=== PATIENT | male | born 1995 | race Caucasian/White ===

== ENCOUNTER 2018-03-09 02:27 | Inpatient (IN) ==
--- OUTSIDE RECORDS SUMMARY | 2018-03-09 02:40 | External Medical Summary | Referral Summary ---
:1995 Author Organization [facility] [place], [facility] Address [address] [place] [address] [place] [id number] Care Team Providers Name Role Phone No PCP, States Primary Care Physician Encounter VC Date(s): 07/06/16 - 07/06/16 [facility] [place], [address] [place] [phone] [place] Discharge Diagnosis: Heat exposure Discharge Disposition: 01-Home or Self Care Attending Physician: Lauri Carrasco PA-C Admitting Physician: Lauri Carrasco PA-C Vital Signs Most recent to oldest [Reference Range]: 1 Temperature Tympanic [36.6-38.1 degC] 36.9 degC (07/06/16 4:36 PM) Peripheral Pulse Rate [60-100 bpm] 59 bpm *LOW* (07/06/16 4:36 PM) Blood Pressure [90-140/60-90 mmHg] 120/72 mmHg (07/06/16 4:36 PM) SpO2 98 % (07/06/16 4:36 PM) Problem List No data available for this section Allergies, Adverse Reactions, Alerts No Known Allergies Medications No Known Medications Results No data available for this section Immunizations No data available for this section Procedures Procedure Date Related Diagnosis Body Site Appendectomy Social History Social History Type Response Smoking Status Never smoker Assessment and Plan Extracted from: Title: tired, dizzy Author: Lauri Carrasco PA-C Date: 07/06/16 Assessment/Plan Heat exposure Recommended adequate hydration, taking water with him, wearing a hat to provide shade,loosefitting clothing-light colored. DAwork note was providediagnosis and treatment discussed. Patient advised to follow up with PCP in 2-3 days. Patient stable upon discharge, alert and orientated with no apparent distress, and indicated understanding of discharge instructions.
--- OUTSIDE RECORDS SUMMARY | 2018-03-09 02:40 | External Medical Summary | Referral Summary ---
:1995 Author Organization [facility] [place] [facility] Address [address] [place] [address] [place] [phone] Care Team Providers Name Role Phone No PCP, States Primary Care Physician Encounter VC Date(s): 08/15/16 - 08/15/16 [facility] [place] [address] [place] [phone] [place] Discharge Disposition: 01-Home or Self Care Attending Physician: Aaron Guthrie APRN Admitting Physician: Aaron Guthrie APRN Vital Signs Most recent to oldest [Reference Range]: 1 Temperature Tympanic [36.6-38.1 degC] 36.9 degC (08/15/16 8:33 AM) Peripheral Pulse Rate [60-100 bpm] 67 bpm (08/15/16 8:33 AM) Respiratory Rate [14-20 br/min] 17 br/min (08/15/16 8:33 AM) Blood Pressure [90-140/60-90 mmHg] 118/70 mmHg (08/15/16 8:33 AM) SpO2 98 % (08/15/16 8:33 AM) Problem List No data available for this section Allergies, Adverse Reactions, Alerts No Known Allergies Medications No Known Medications Results No data available for this section Immunizations No data available for this section Procedures Procedure Date Related Diagnosis Body Site Appendectomy Social History Social History Type Response Smoking Status Never smoker Assessment and Plan No data available for this section
--- OUTSIDE RECORDS SUMMARY | 2018-03-09 02:40 | External Medical Summary | Continuity of Care Document ---
:1995 Author Organization Via [facility] in [place] Allergies Active Description Code Type Severity Reaction Onset Reported/ Identified Relationship Clinical to Patient Status Yes No Allergy Drug N/A N/A 11/23/2013 Information Aller gy Yes No Known Drug N/A N/A 11/23/2013 Drug Aller Allergies gy Yes No Known NKMA N/A N/A 07/06/2016 Allergies Medications There is no data. 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 11/23/2013 Nelson RODRIGUEZ, Final 338.29 CHRONIC PAIN NEC [facility] 11/23/2013 Nelson RODRIGUEZ, Final 339.20 POST-TRAUM HEADACHE Bhavin W NOS 11/23/2013 Nelson RODRIGUEZ, Final 719.47 JOINT PAIN-ANKLE Bhavin W 11/23/2013 Nelson RODRIGUEZ, Final 784.0 HEADACHE Bhavin W 11/23/2013 Nelson RODRIGUEZ, 959.01 HEAD INJURY NOS [facility] 11/23/2013 Nelson RODRIGUEZ, External 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 11/23/2013 Nelson RODRIGUEZ, External E849.[address] ON [facility] STREET/[address] 07/06/2016 Lauri Carrasco Final T67.9XXA Effect of heat and E light, unspecified, initial encounter 08/18/2016 Jerri, Final S62.309A Unspecified fracture Aaron A of unspecified metacarpal bone, initial encounter for closed fracture Procedures Code Description [place] [address] Office or 07/06/2016 other outpatient visit for the evaluation and management of a new patient, which requires these 3 paredes components: A detailed history; A detailed examination; Medical decision making of jane c [id number] Radiologic 08/15/2016 examination, hand; minimum of 3 views.. [id number] Office or 08/15/2016 other outpatient visit for the evaluation and management of an established patient, which requires at least 2 of these 3 paredes components: A detailed history; A detailed examination; Medical d Results There is no data. Encounters ACCT No. Visit Discharge Status Pt. Type Provider Facility Loc./Unit Complaint Date/Time [id number] 11/23/2013 11/24/2013 DIS Outpatient Nelson Via N 3 18:37:00 11:15:00 Bhavin RODRIGUEZ [facility] [id number] 08/15/2016 08/15/2016 DIS Outpatient Guthrie, Via [facility] right hand 43 08:24:00 23:59:00 Aaron [facility] [id number] 07/06/2016 07/06/2016 DIS Outpatient Komarek, Via [facility] IC DIZZY AND 37 16:24:00 23:59:00 Lauri [facility]
[2018-03-09] MEDS ORDERED: SALINE FLUSH 10ml SYRINGE IVF PRN (02:46)
[2018-03-09] MEDS ORDERED: NS 1,000 ML IV ONE (02:47)
--- NOTE | 2018-03-09 02:53 | Emergency Department Report ---
General Adult HPI - General Chief complaint: Psychiatric Symptoms <SamuelDaniel Barnett 03/09/18 02:53> Stated complaint: eval <BakerDaniel 03/09/18 02:53> Time Seen by Provider: 03/09/18 02:31 <Elpidio Bakerwendy Barnett 03/09/18 02:53> Source: patient, police <Elpidio Bakerwendy Barnett 03/09/18 02:53> Mode of arrival: ambulatory <BakerDaniel 03/09/18 02:53> Limitations: no limitations <SamuelDaniel Barnett 03/09/18 02:53> - History of Present Illness HPI narrative: 22-year-old male presents to the emergency department with the chief complaint of suicidal thoughts with suicidal gesture. He states that at approximately 1:30 this morning he took approximately 40 tablets of extra strength Tylenol and 8-10 tablets of Xanax of unknown strength. A purchased the Xanax from a person off the street and does not know the strength. He denies any other form of self injury or self-harm. He denies homicidal ideation or plan. He denies any current pain or discomfort. No other complaints or associated symptoms. He was at home when his symptoms began. Symptoms have been persistent in nature since onset. Patient arrived back in town yesterday from [place] where he was living with his girlfriend after the girlfriend broke up with him. Patient states that the girlfriend breaking up with him was the catalyst for his actions. No history of suicide attempts in the past. <Daniel Baker 03/09/18 02:55> - Related Data Home Medications Medication Instructions Recorded Confirmed No known Home medications [No home 03/09/18 03/09/18 meds] <Daniel Baker 03/09/18 02:53> Allergies Allergy/AdvReac Type Severity Reaction Status Date / Time morphine AdvReac Mild NAUSEA/ Verified 03/09/18 03:53 VOMITING <Daniel Baker 03/09/18 02:53> Review of Systems Constitutional: Denies: fever, chills <Daniel Baker 03/09/18 02:55> Eyes: Denies: eye pain, vision change <Daniel Baker 03/09/18 02:55> ENT: Denies: ear pain, throat pain <Daniel Baker 03/09/18 02:55> Cardiovascular: Denies: chest pain, palpitations <Daniel Baker 03/09/18 02: 55> Respiratory: Denies: cough, dyspnea <Daniel Baker 03/09/18 02:55> Gastrointestinal: Denies: abdominal pain, nausea, vomiting, diarrhea <Daniel Baker 03/09/18 02:55> Genitourinary: Denies: urgency, dysuria <Daniel Baker 03/09/18 02:55> Musculoskeletal: Denies: back pain, arthralgia <Daniel Baker 03/09/18 02:55 > Integumentary: Denies: erythema, rash <Daniel Baker 03/09/18 02:55> Neurological: Denies: headache, numbness, paresthesias <Daniel Baker 02:55> Psychiatric: Reports: depression, suicidal thoughts. Denies: anxiety, homicidal thoughts, auditory hallucinations, visual hallucinations <Daniel Baker 03/09/18 04:20> Endocrine: Denies: polydipsia, polyuria <Daniel Baker 03/09/18 02:55> Hematological/Lymphatic: Denies: easy bruising, lymphadenopathy <Daniel Baker 03/09/18 02:55> Allergic/Immunologic: Denies: facial swelling, urticaria <Daniel Baker 02:55> [facility] Patient Stated Medical History Depression Yes: hx as a child ADHD <Daniel Baker 03/09/18 02:55> Surgical History: Denied by patient. <Daniel Baker 03/09/18 02:55> Family History: Reviewed and Noncontributory. <Daniel Baker 03/09/18 02:55> - Social History Smoking status: Never smoker <Daniel Baker 03/09/18 02:55> Substance use type: does not use <Daniel Baker 03/09/18 02:55> Alcohol intake frequency: a few times a month <Daniel Baker 03/09/18 02:55> Physical Exam - Limitations Limitations: no limitations <Daniel Baker 03/09/18 02:55> - General General appearance: alert, in no apparent distress <Daniel Baker 03/09/18 02:55> - Normal Exams: Head:: Normocephalic without trauma <Daniel Baker 03/09/18 02:55> Eyes:: Pupils are PERRLA w/ EOMI, No scleral icterus, irritation, or foreign bodies noted <Daniel Baker 03/09/18 02:55> ENMT:: No facial trauma, nasal exudates, pharyngeal erythema, or exudates are noted <Daniel Baker 03/09/18 02:55> Dental: No fractured, loose, or missing teeth noted <Daniel Baker 03/09/18 02:55> Neck:: Full range of motion, without adenopathy, JVD, bruits or thyromegaly < Daniel Baker 03/09/18 02:55> Chest/Respirations:: Clear all rios, with good airflow, and symmetry bilaterally <Daniel Baker 03/09/18 02:55> Cardiovascular:: Regular rate and rhythm, without murmur or gallop, Pulses 2+ all extremities, capillary refill, <2 seconds all extremities <Daniel Baker 03/09/18 02:55> Abdomen:: Bowel sounds positive, soft, non-tender, non-distended, no hepatosplenomegaly, masses or bruits noted <Daniel Baker 03/09/18 02:55> Lymphatic:: No lymphadenopathy, or lymphedema noted <Daniel Baker 03/09/18 02:55> Musculoskeletal:: No tenderness, or deformity noted, good range of motion, all extremities <Daniel Baker 03/09/18 02:55> Integumentary:: No rashes, hives, or bruising noted, hair and nails, without abnormality <Daniel aBker 03/09/18 02:55> Neurological:: Patient is alert, and oriented, cranial nerves, motor/sensory/ cerebellar, exams w/o gross deficits, to observation <Daniel Baker 02:55> Psychiatric:: Patient exhibits (Flat affect. ) <Daniel Baker 03/09/18 02:55 > Course Vital Signs Temperature 97.8 F 03/09/18 02:27 Pulse Rate 78 03/09/18 02:27 Respiratory Rate 18 03/09/18 02:27 Blood Pressure 155/85 H 03/09/18 02:27 Pulse Oximetry 99 03/09/18 02:27 Temperature 98.5 F 03/09/18 16:01 Pulse Rate 74 03/09/18 17:30 Respiratory Rate 17 03/09/18 17:30 Blood Pressure 130/63 03/09/18 17:00 Pulse Oximetry 96 03/09/18 17:30 <Daniel Baker - 03/09/18 02:55> Medical Decision Making - MDM Narrative Medical decision making narrative: Pts acetaminophen level >150; mucomyst started and hospitalist contacted for txfr to ICU. <Philippe Blevins - 03/09/18 13:41> Labs were reviewed in detail with the patient and family and questions are answered. Patient is given 1 L normal saline intravenously. 4 hour Tylenol level is drawn. Patient was not originally forthcoming with ingestion of pills. It was a little while into his emergency department stay when he finally did admit to exactly what he had taken and by that time he was past the 1 hour window for activated charcoal. He was discussed with Dr. Guzman and admitted to his service for further evaluation and treatment. Patient care is turned over to Dr. Jeovany Blevins at 0600. <Daniel Baker - 03/09/18 05:58> - Differential Diagnosis SI, HI, Overdose, Suicide attempt <Daniel Baker 03/09/18 04:20> - Lab Data Result diagrams: 03/09/18 02:57 03/09/18 02:57 <Daniel Baker - 03/09/18 02:53> Lab Results 03/09/18 03/09/18 03/09/18 Range/Units 02:57 02:57 03:02 WBC 4.8 (4.5-11.0) T/MM3 RBC 5.07 (4.50-5.90) M/MM3 Hgb 15.7 (13.5-17.5) GM/DL Hct 46.3 (41-53) % MCV 91.3 (80-100) UM3 MCH 31.0 (26-34) UUG MCHC 33.9 (31-37) GM/DL RDW Std Deviation 42.5 (36.9-50.2) FL Plt Count 208 (130-400) T/MM3 MPV 9.7 (9.4-12.4) UM3 Immature Gran % (Auto) 0.2 (0.0-0.5) % Neut % (Auto) 48.3 (33-66) % Lymph % (Auto) 42.3 (23-45) % [place] % (Auto) 7.5 (0-9.0) % Eos % (Auto) 1.3 (0-4) % Baso % (Auto) 0.4 (0-2) % Neut # (Auto) 2.3 (1.8-7.7) T/MM3 Lymph # (Auto) 2.0 (1-4.8) T/MM3 [place] # (Auto) 0.4 (0-0.8) T/MM3 Eos # (Auto) 0.1 (0-0.5) T/MM3 Baso # (Auto) 0.0 (0-0.2) T/MM3 Abs Immat Gran (auto) 0.01 (0.00-0.03) T/MM3 Turbidity < 20 (0-20) Sodium 149 H (134-144) MEQ/L Potassium 3.7 (3.6-5) MEQ/L Chloride 103 (98-107) MEQ/L Carbon Dioxide 29 (22-30) MEQ/L Anion Gap 17 H (5-15) meq/L BUN 8.0 L (9-20) MG/DL Creatinine 0.9 (0.8-1.5) mg/dL GFR Calculation 108 BUN/Creatinine Ratio 9 (6-26) RATIO Glucose 119 H (75-110) MG/DL Calculated Osmolality 285 H (261-280) MOSM/KG Calcium 9.8 (8.4-10.2) MG/DL Total Bilirubin 1.00 (0.20-1.30) MG/DL Icterus Index < 2 (0-7) AST 21 (17-59) U/L ALT 19 (1-50) U/L Alkaline Phosphatase 73 (38-126) U/L Troponin I < 0.012 (0-0.12) ng/ml Total Protein 8.0 (6.3-8.2) g/dL Albumin 4.9 (3.5-5.0) g/dL Globulin 3.1 (2.4-3.6) G/DL Albumin/Globulin Ratio 1.6 (1.1-2.2) RATIO TSH 2.96 (0.47-4.68) mIU/L Specimen Hemolysis < 15 (0-25) Ur Collection Type Urine, void-cc/notcc Urine Color Yellow (YELLOW) Urine Clarity Clear Urine pH 5.5 (5.0-8.0) Ur Specific [place] <=1.005 L (1.015-1.025) Urine Protein Negative (NEGATIVE) Urine Glucose (UA) Negative (NEGATIVE) Urine Ketones Negative (NEGATIVE) Urine Occult Blood 1+ A (NEGATIVE) Urine Nitrate Negative (NEGATIVE) Urine Bilirubin Negative (NEGATIVE) Urine Urobilinogen 0.2 (NORMAL) EU/DL Ur Leukocyte Esterase Negative (NEGATIVE) Urine RBC 1-3 (0-3) /HPF Urine WBC None seen (0-5) /HPF Urine Bacteria None seen (NEGATIVE) Ur Culture Indicated? Cult not indicated Salicylates < 1.0 L (2-20) MG/DL Urine Opiates Screen ng/mL Ur Oxycodone Screen ng/mL Urine Methadone Screen ng/mL Ur Propoxyphene Screen ng/mL Acetaminophen 111 H (10-30) UG/ML Ur Barbiturates Screen ng/mL U Tricyclic Antidepress ng/mL Ur Phencyclidine Scrn ng/mL Ur Amphetamines Screen ng/mL U Methamphetamines Scrn ng/mL U Benzodiazepines Scrn ng/mL Urine Cocaine Screen ng/mL U Cannabinoids Screen ng/mL Alcohol, Quantitative 78 (<10) mg/dL 03/09/18 03/09/18 Range/Units 03:02 05:51 WBC (4.5-11.0) T/MM3 RBC (4.50-5.90) M/MM3 Hgb (13.5-17.5) GM/DL Hct (41-53) % MCV (80-100) UM3 MCH (26-34) UUG MCHC (31-37) GM/DL RDW Std Deviation (36.9-50.2) FL Plt Count (130-400) T/MM3 MPV (9.4-12.4) UM3 Immature Gran % (Auto) (0.0-0.5) % Neut % (Auto) (33-66) % Lymph % (Auto) (23-45) % [place] % (Auto) (0-9.0) % Eos % (Auto) (0-4) % Baso % (Auto) (0-2) % Neut # (Auto) (1.8-7.7) T/MM3 Lymph # (Auto) (1-4.8) T/MM3 [place] # (Auto) (0-0.8) T/MM3 Eos # (Auto) (0-0.5) T/MM3 Baso # (Auto) (0-0.2) T/MM3 Abs Immat Gran (auto) (0.00-0.03) T/MM3 Turbidity (0-20) Sodium (134-144) MEQ/L Potassium (3.6-5) MEQ/L Chloride (98-107) MEQ/L Carbon Dioxide (22-30) MEQ/L Anion Gap (5-15) meq/L BUN (9-20) MG/DL Creatinine (0.8-1.5) mg/dL GFR Calculation BUN/Creatinine Ratio (6-26) RATIO Glucose (75-110) MG/DL Calculated Osmolality (261-280) MOSM/KG Calcium (8.4-10.2) MG/DL Total Bilirubin (0.20-1.30) MG/DL Icterus Index (0-7) AST (17-59) U/L ALT (1-50) U/L Alkaline Phosphatase (38-126) U/L Troponin I (0-0.12) ng/ml Total Protein (6.3-8.2) g/dL Albumin (3.5-5.0) g/dL Globulin (2.4-3.6) G/DL Albumin/Globulin Ratio (1.1-2.2) RATIO TSH (0.47-4.68) mIU/L Specimen Hemolysis (0-25) Ur Collection Type Urine Color (YELLOW) Urine Clarity Urine pH (5.0-8.0) Ur Specific [place] (1.015-1.025) Urine Protein (NEGATIVE) Urine Glucose (UA) (NEGATIVE) Urine Ketones (NEGATIVE) Urine Occult Blood (NEGATIVE) Urine Nitrate (NEGATIVE) Urine Bilirubin (NEGATIVE) Urine Urobilinogen (NORMAL) EU/DL Ur Leukocyte Esterase (NEGATIVE) Urine RBC (0-3) /HPF Urine WBC (0-5) /HPF Urine Bacteria (NEGATIVE) Ur Culture Indicated? Salicylates (2-20) MG/DL Urine Opiates Screen Negative ng/mL Ur Oxycodone Screen Negative ng/mL Urine Methadone Screen Negative ng/mL Ur Propoxyphene Screen Negative ng/mL Acetaminophen 156 H* (10-30) UG/ML Ur Barbiturates Screen Negative ng/mL U Tricyclic Antidepress Negative ng/mL Ur Phencyclidine Scrn Negative ng/mL Ur Amphetamines Screen Negative ng/mL U Methamphetamines Scrn Negative ng/mL U Benzodiazepines Scrn Negative ng/mL Urine Cocaine Screen Negative ng/mL U Cannabinoids Screen Negative ng/mL Alcohol, Quantitative (<10) mg/dL <Daniel Baker 03/09/18 02:55> - EKG Data EKG #1 EKG results narrative: Sinus rhythm. 82 bpm. No STEMI. Normal EKG. <Daniel Baker 03/09/18 03:09> Disposition Clinical Impression: Multiple drug overdose Qualifiers: Encounter type: initial encounter Injury intent: intentional self-harm Qualified Code(s): T50.902A - Poisoning by unspecified drugs, medicaments and biological substances, intentional self-harm, initial encounter <Daniel Baker 03/09/18 18:41> Disposition: 02 To [facility] <Daniel Baker 03/09/18 18:41> Condition: Stable <Daniel Baker 03/09/18 18:41> Instructions: <Daniel Baker 03/09/18 02:53> Prescriptions: No Action No known Home medications [No home meds] 0 #0 misc <Daniel Baker 02:53> Referrals: Perico Fiore MD [Physician] - <Daniel Baker 03/09/18 02:53 > Forms: <Daniel Baker 03/09/18 02:53> Time of Disposition: 05:45 (Admit. Dr. Guzman. ) <Daniel Baker 03/09/18 18:41 > - Seen By: physician <Daniel Baker 03/09/18 18:41>
[2018-03-09] MEDS ORDERED: ACETYLCYSTEINE IV ONE ×3 (06:12→06:14)
[2018-03-09] MEDS ORDERED: D5W IV ONE ×3 (06:12→06:14)
--- NOTE | 2018-03-09 06:41 | History & Physical Report ---
History of Present Illness Date: 03/09/18 Chief complaint: overdose tylenol HPI: This is a very nice 22 y/o male that recently broke up with his girlfriend. He has been going between his home here in [place] and [facility]. Today the patient became much more upset about the breakup. At around 1:30 he took approximately 40 500mg tabs of Tylenol and around 8 or 10 Ativan tabs he bought on the street. He presents I believe with his mother with concerns of suicidal ideation/attempt. In the ED the patient's initial and subsequent Tylenol level would inform the need for acetylcysteine infusion . The patients BAL is elevated. The patient is remorseful currently and denies active suicidal ideation. He has never done something like this in the past. The patient has not required counseling. Review of Systems Review of systems: patient with alcohol on board and history is somewhat limitied. He denies headache, no tinnitus, no sore throat, no cough, no congestion, no chest pain, no abdomen pain, no nausea/vomiting. no neruo changes. He denies currently being suicidal. 10 point ROS otherwise negative except for outlined above. Past Medical History Medical History Updates: none Surgical History: appendectomy Family History Updates: mother alive and well, father alive and well. no signficant psychiatric history in family. Family History: As Above - Social History Smoking status: Never smoker Alcohol intake: current Alcohol intake frequency: a few times a month Housing: house Household members: family service: No Current occupational status: unemployed Current residence: Apartment/Private Home Medications Home Medications Medication Instructions Recorded Confirmed Type No known Home medications [No home 03/09/18 03/09/18 History meds] Allergies Allergy/AdvReac Type Severity Reaction Status Date / Time morphine AdvReac Mild NAUSEA/ Verified 03/09/18 03:53 VOMITING Exam Vital Signs: Temperature 97.8 F 03/09/18 02:27 Pulse Rate 79 03/09/18 04:01 Respiratory Rate 18 03/09/18 02:27 Blood Pressure 126/56 03/09/18 04:01 Pulse Oximetry 97 03/09/18 04:01 Telemetry Rhythm: Sinus Rhythm Height/Weight/BMI: Height 1.8 m Weight 70.6 kg - Constitutional Present: mild distress, well nourished, well developed, average body habitus, disheveled, cooperative - Routine HEENT Exam Head: Present: normocephalic, atraumatic Eye: Present: EOMI, normal accommodation. Absent: scleral injection ENT: Present: mucous membranes moist - Routine Neck Exam Present: supple, full ROM - Routine Respiratory Exam Present: CTA bilaterally - Routine Cardiovascular Exam Present: RRR, no murmur - Routine Abdominal Exam Present: soft, normoactive bowel sounds, non distended, non tender - Routine Extremities Exam Present: no edema, non tender, full ROM - Routine Back/Spine/Pelvis Exam Back/Spine: Present: full ROM - Routine Skin Exam Present: intact, dry - Routine Neurological Exam Present: oriented X3, normal reflexes, moving all extremities, normal tone, vision grossly intact, hearing grossly intact, normal speech. Absent: alert, motor deficit - Routine Psychiatric Exam Present: normal thought process, cooperative, depressed, anxious. Absent: normal affect, suicidal ideation, good insight, good judgment, agitated Results - Labs CBC & Chem 7: 03/09/18 02:57 03/09/18 02:57 Labs: reviewed and discussed with ED provider Assessment and Plan (1) Tylenol overdose Current visit: Yes Status: Acute (2) Suicidal ideation Current visit: Yes Status: Acute (3) Depression with anxiety Current visit: Yes Status: Acute (4) Acute alcohol intoxication Current visit: Yes Status: Acute Assessment and Plan: 1. tylenol OD acute POA: start iv acetylcysteine. usual monitoring. minimal toxicity. consider coordinating with poison control 2. depression with suicidal ideation acute POA: currently denies suicidal ideation. needs to visit with social work msw and or screeners to identify a safety plan and outpatient cousneling. Mother is present in room and fully aware of what happened and is very supportive of son 3. acute alcohol intoxication: typically does not drink regularly. no CIWA process indicated 4. benzo ingestion acute POA: reports buying off street. to be aware of , airway okay 5. DVT ppx; SCD, DVT Prophylaxis: SCD's Resuscitation Status: Full Code - Time spent with patient Time with patient PN: 30 minutes - Physician Narrative Physician: Aspen Marie MD Narrative: Date: 03/09/18 Time: 0637 Hospital Course Summary Disclaimer: The visit summary below is not to be considered part of the above Progress Note.
[2018-03-09] MEDS ORDERED: NS 1,000 ML IV SCH (06:45)
[2018-03-09 07:08] VITALS: BMI 21.2
[2018-03-09] MEDS ORDERED: ONDANSETRON 4 MG/2 ML INJECTION IVP PRN (07:50)
--- NOTE | 2018-03-09 10:16 | Progress Note ---
- Date 03/09/18 Subjective: Patient was seen and examined this morning soon after admission; labs, orders, H &P reviewed. Having a lot of nausea and some intermittent vomiting. When asked if he is still considering harming himself he states "I am feeling a little better" but doesn't qualify that he no longer wants to hurt himself. Received initial NAC dosing in ED and getting ready to start bag #2. APAP level increasing on recent recheck to >150. Objective Vital signs: Temperature 97.9 F 03/09/18 07:07 Pulse Rate 70 03/09/18 07:07 Respiratory Rate 12 03/09/18 07:07 Blood Pressure 118/74 03/09/18 07:07 Pulse Oximetry 100 03/09/18 07:07 Rhythm: Sinus Tachycardia Height/Weight/BMI: Height 1.8 m Weight 69.1 kg Body Mass Index 21.2 - Constitutional Present: no acute distress, well nourished, well developed - Routine HEENT Exam Head: Present: normocephalic, atraumatic Eye: Present: PERRL ENT: Present: mucous membranes moist, oropharynx clear - Routine Respiratory Exam Present: CTA bilaterally. Absent: rales, rhonchi, wheezes - Routine Cardiovascular Exam Present: tachycardia. Absent: murmur, rubs - Routine Abdominal Exam Present: soft, tenderness (RUQ; no rigidity or guarding ). Absent: distended - Routine Extremities Exam Present: no edema, non tender - Routine Skin Exam Present: intact, dry, warm. Absent: rash - Routine Neurological Exam Present: alert, normal speech - Routine Psychiatric Exam Present: suicidal ideation, depressed Comments: flat affect Results - Labs CBC & Chem 7: 03/09/18 02:57 03/09/18 02:57 Labs: Recent APAP level >150, increased from 111 Assessment and Plan Assessment and Plan: Impression: Acute APAP OD; suicidial intention, started on IV acetylcysteine (NAC) and monitoring; recent levels in the toxic range Depression with suicidal ideation, acute and POA, secondary to recent breakup with his girlfriend but unclear if he has had a history of depression Acute EtOH intoxication, improved, typically not using EtOH per report, will monitor for withdrawal symptoms however Acute benzodiazepine ingestion, POA, improved and awake and alert now, purchased on the street and not typically taking, should not have risk for withdrawal Nausea and vomiting; presumably secondary to OD, monitor with supportive care Hypernatremia; Na 149, continue on 1/2NS @ 100 ml/hour and stop saline, monitor levels Plan: As above, will monitor closely in ICU both for safety due to concern for self harm and for IV NAC protocol Continue NAC steps 2 and 3 per protocol Follow APAP levels for clearance Monitor for any withdrawal symptoms; prn lorazepam ordered IV as he is still vomiting and nauseated and at risk for EtOH withdrawal symptoms Will need to discuss next steps in terms of suicidality and need for inpatient treatment when feeling better and closer to medical stability Repeat CMP, Mg, CBC in AM for surveillance Allow general diet as tolerated IV zofran for ongoing nausea symptoms He remains critically and needs ICU level of care. Discussed with bedside RN and case management. Will continue to monitor closely and discuss dispo options when medically improved. - Physician Narrative Narrative: Date: 03/09/18 Time: 1009 Hospital Course Summary Disclaimer: The visit summary below is not to be considered part of the above Progress Note. Hospital Course: Impression: Acute APAP OD; suicidial intention, started on IV acetylcysteine (NAC) and monitoring; recent levels in the toxic range Depression with suicidal ideation, acute and POA, secondary to recent breakup with his girlfriend but unclear if he has had a history of depression Acute EtOH intoxication, improved, typically not using EtOH per report, will monitor for withdrawal symptoms however Acute benzodiazepine ingestion, POA, improved and awake and alert now, purchased on the street and not typically taking, should not have risk for withdrawal Nausea and vomiting; presumably secondary to OD, monitor with supportive care Hypernatremia; Na 149, continue on 1/2NS @ 100 ml/hour and stop saline, monitor levels Plan: (03/09/18) As above, will monitor closely in ICU both for safety due to concern for self harm and for IV NAC protocol Continue NAC steps 2 and 3 per protocol Follow APAP levels for clearance Monitor for any withdrawal symptoms; prn lorazepam ordered IV as he is still vomiting and nauseated and at risk for EtOH withdrawal symptoms Will need to discuss next steps in terms of suicidality and need for inpatient treatment when feeling better and closer to medical stability Repeat CMP, Mg, CBC in AM for surveillance Allow general diet as tolerated IV zofran for ongoing nausea symptoms He remains critically and needs ICU level of care. Discussed with bedside RN and case management. Will continue to monitor closely and discuss dispo options when medically improved.
[2018-03-09] MEDS: 1/2 NS 1,000 ML IV SCH ×2 (11:59→21:51)
[2018-03-10 06:13] VITALS: BP 131/65; PULSE 59; RESP 15; O2SAT 87
[2018-03-10 07:41] VITALS: TEMP 97.6
[2018-03-10] MEDS ORDERED: ONDANSETRON 4 MG TABLET PO PRN (08:10)
--- NOTE | 2018-03-10 09:25 | Discharge Summary ---
Discharge Information Date of admission: 03/09/18 06:49 Anticipated date of discharge: 03/10/18 Attending Physician: Kerri Vang MD Primary care physician: None; I have recommended he establish care with a PCP and provided some names. - Discharge Diagnosis (1) Acute alcohol intoxication Status: Acute (2) Depression with anxiety Status: Acute (3) Suicidal ideation Status: Acute (4) Tylenol overdose Status: Acute As above. - Laboratory Labs: 03/10/18 02:57 03/10/18 02:57 History of Present Illness HPI: This is a very nice 22 y/o male that recently broke up with his girlfriend. He has been going between his home here in [place] and [facility]. Today the patient became much more upset about the breakup. At around 1:30 he took approximately 40 500mg tabs of Tylenol and around 8 or 10 Ativan tabs he bought on the street. He presents I believe with his mother with concerns of suicidal ideation/attempt. In the ED the patient's initial and subsequent Tylenol level would inform the need for acetylcysteine infusion . The patients BAL is elevated. The patient is remorseful currently and denies active suicidal ideation. He has never done something like this in the past. The patient has not required counseling. Objective Vital signs: Temperature 97.6 F 03/10/18 07:39 Pulse Rate 59 L 03/10/18 06:00 Respiratory Rate 15 03/10/18 06:00 Blood Pressure 131/65 03/10/18 06:00 Pulse Oximetry 87 L 03/10/18 06:00 Rhythm: Normal Sinus Rhythm Height/Weight/BMI: Height 1.8 m Weight 73.4 kg Body Mass Index 21.2 - Constitutional Present: no acute distress, well nourished, well developed, cooperative - Routine HEENT Exam Head: Present: normocephalic, atraumatic Eye: Present: PERRL. Absent: conjunctival icterus ENT: Present: mucous membranes moist, oropharynx clear - Routine Respiratory Exam Present: CTA bilaterally - Routine Cardiovascular Exam Present: RRR. Absent: no murmur - Routine Abdominal Exam Present: soft, non distended, non tender. Absent: rebound, guarding - Routine Extremities Exam Present: pulses intact, normal capillary refill. Absent: edema - Routine Skin Exam Present: dry, warm. Absent: jaundice, rash - Routine Neurological Exam Present: alert, oriented X3, vision grossly intact, hearing grossly intact, normal speech - Routine Psychiatric Exam Present: normal affect, cooperative. Absent: suicidal ideation, homicidal ideation Hospital Course This is a general summary of the patient's hospital course. For more details refer to the complete medical record. Hospital course: Impression: Acute APAP OD; suicidial intention, started on IV acetylcysteine (NAC) and monitoring; recent levels in the toxic range Depression with suicidal ideation, acute and POA, secondary to recent breakup with his girlfriend but unclear if he has had a history of depression Acute EtOH intoxication, improved, typically not using EtOH per report, will monitor for withdrawal symptoms however Acute benzodiazepine ingestion, POA, improved and awake and alert now, purchased on the street and not typically taking, should not have risk for withdrawal Nausea and vomiting; presumably secondary to OD, monitor with supportive care Hypernatremia; Na 149, continue on 1/2NS @ 100 ml/hour and stop saline, monitor levels Plan: (03/09/18) As above, will monitor closely in ICU both for safety due to concern for self harm and for IV NAC protocol Continue NAC steps 2 and 3 per protocol Follow APAP levels for clearance Monitor for any withdrawal symptoms; prn lorazepam ordered IV as he is still vomiting and nauseated and at risk for EtOH withdrawal symptoms Will need to discuss next steps in terms of suicidality and need for inpatient treatment when feeling better and closer to medical stability Repeat CMP, Mg, CBC in AM for surveillance Allow general diet as tolerated IV zofran for ongoing nausea symptoms He remains critically and needs ICU level of care. Discussed with bedside RN and case management. Will continue to monitor closely and discuss dispo options when medically improved. 03/10/2018 Wale is feeling much better today. He completed the NAC protocol yesterday, has not had any nausea or vomiting since yesterday morning, is eating well. We discussed both yesterday afternoon and this morning his current state of mind and he denies any suicidality. He regrets his attempt. He has good family support; lives with his mom, dad and 2 siblings. His mom is at the bedside and states that one of them is always there as she works nights and her days. They are going to establish care with a therapist; I have provided him with contact information for [facility] to do so. I have also recommended he establish care with a primary care physician. He is medically stable for discharge and I do not feel he is unsafe, will be closely supervised. I have also provided him with the [facility] crisis line if he needs further care prior to establishing with a therapist. Time spent with patient: discharge greater than 30 minutes Resuscitation Status: Full Code Discharge Plan - Discharge Disposition Discharge Date: 03/10/18 Disposition: 01 Discharged Home, Self-Care *Condition: Improved Reason For Visit (Visit label in EMR): tylenol od - Discharge Medications *Discharge Medications: No Action No known Home medications [No home meds] 0 #0 misc - Discharge Packet/Instructions *Diet: Regular diet *Activity: Activity as tolerated; no specific restrictions. Additional Instructions: If you have any thoughts of self harm or concerns about your safety please return to the emergency department for further evaluation. Recommend establishing care with a primary care physician and a therapist as we discussed. [facility] in [place] is open 24 hours/day and they can be reached at . *Notify Physician if: you have any thoughts of harming yourself. *During Business Hours Contact: the [facility] switchboard and request to speak with the on-call physician until you have established care with a primary care physician. *After Business Hours Contact: the [facility] switchboard and request to speak with the on-call physician or return to the emergency department for further evaluation. *Pending Lab/Results: No Pending Lab - Referrals/Follow Up - Patient Handouts Patient Handouts: Suicide Prevention for Adults (DC) - Dismissal Complete Discharge Instructions are:: Complete Physician Narrative - Narrative Attestation Narrative: Date: 03/10/18 Time: 921
== END 2018-03-10 09:45 | disposition home or self-care (01) | DRG 918 ==
LOC: ED 02:27 → CCU 06:49
PROVIDERS: ADMIT Emergency Medicine; ATTEND Internal Medicine